=== PATIENT | female | born 1965 | race Caucasian/White ===

== ENCOUNTER 2022-04-16 08:15 | Outpatient (CLI) | payer OTHER | END 2022-04-16 08:16 | disposition home or self-care (01) | LOC: CSHMAMMO 08:15 | PROVIDERS: ATTEND Nurse Practitioner Family | DX: Z12.31 Encounter for screening mammogram for malignant neoplasm of breast (principal); Z80.3 Family history of malignant neoplasm of breast | CPT/HCPCS: 77067 ==

== ENCOUNTER 2022-06-25 09:15 | Outpatient (CLI) | payer OTHER | END 2022-06-25 09:16 | disposition home or self-care (01) | LOC: CSHULT 09:15 | PROVIDERS: ATTEND Nurse Practitioner Family | DX: R92.2 Inconclusive mammogram (principal); N63.10 Unspecified lump in the right breast, unspecified quadrant ==

== ENCOUNTER → 2022-07-20 | Day surgery (SDC) | payer OTHER | LOC: CSHULT 12:45 | PROVIDERS: ATTEND Nurse Practitioner Family | PROC: 0HB5XZX Excision of Chest Skin, External Approach, Diagnostic (ICD-10-PCS; principal; 2022-07-20) | DX: N63.11 Unspecified lump in the right breast, upper outer quadrant (principal); R92.8 Other abnormal and inconclusive findings on diagnostic imaging of breast; F32.9 Major depressive disorder, single episode, unspecified; Z88.4 Allergy status to anesthetic agent; Z79.84 Long term (current) use of oral hypoglycemic drugs; Z79.899 Other long term (current) drug therapy | CPT/HCPCS: 19083 ==